=== PATIENT | male | born 1995 ===

== ENCOUNTER 2017-06-20 11:05 | Emergency (ER) | payer OTHER ==
[2017-06-20 11:23] VITALS: TEMP 98.4; O2SAT 99
[2017-06-20 11:25] VITALS: BMI 25.3
[2017-06-20 13:09] LABS: BASO % 0.5 % (0.0-2.0); EOS # 0.1 K/uL (0.0-0.7); EOS % 1.8 % (0.0-4.0); HEMATOCRIT 45.4 % (35.0-51.0); LYMPH # 1.3 K/uL (1.0-4.3); LYMPH % 23.9 % (20.0-40.0); MEAN CELL VOLUME 90.4 fl (80.0-94.0); MEAN CORPUSCULAR HEMOGLOBIN 30.1 pg (27.0-31.0); MEAN CORPUSCULAR HGB CONC 33.3 g/dL (33.0-37.0); MONO # 0.5 K/uL (0.0-0.8); MONO % 10.3 % (0.0-10.0); NEUT # 3.4 K/uL (1.8-7.0); NEUT % 63.5 % (50.0-75.0); NRBC % 0.1 % (0.0-0.0); RED CELL DISTRIBUTION WIDTH 13.5 % (11.5-14.5); WHITE BLOOD COUNT 5.3 K/uL (4.8-10.8)
[2017-06-20 13:11] LABS: URINE BILIRUBIN NEGATIVE (NEGATIVE); URINE BLOOD NEGATIVE (NEGATIVE); URINE COLOR STRAW (YELLOW); URINE GLUCOSE (UA) NEG (Normal); URINE KETONE NEGATIVE (NEGATIVE); URINE LEUKOCYTE ESTERASE NEG Leu/uL (Negative); URINE PROTEIN NEGATIVE (NEGATIVE); URINE UROBILINOGEN 0.2-1.0 mg/dL (0.2-1.0)
[2017-06-20 13:18] LABS: ALB/GLOB RATIO 1.6 (1.0-2.1); ALKALINE PHOSPHATASE 61 U/L (38-126); ALT/SGPT 31 U/L (21-72); AST/SGOT 24 U/L (17-59); BILIRUBIN,TOTAL 0.7 mg/dl (0.2-1.3); BLOOD UREA NITROGEN 15 mg/dl (9-20); CALCIUM 9.8 mg/dL (8.4-10.2); CARBON DIOXIDE 27 mmol/L (22-30); CHLORIDE 103 mmol/L (98-107); GFR AFRICAN-AMERICAN > 60; GLUCOSE,RANDOM 92 mg/dL (75-110); POTASSIUM 4.4 MMOL/L (3.6-5.0); SODIUM 141 mmol/l (132-148); TOTAL PROTEIN 7.8 G/DL (6.3-8.2)
--- NOTE | 2017-06-20 13:22 | RAD ---
HISTORY: cp COMPARISON: No prior study available for comparison TECHNIQUE: Chest PA and lateral FINDINGS: LUNGS: No active pulmonary disease. PLEURA: No significant pleural effusion identified. No pneumothorax apparent. CARDIOVASCULAR: Normal. OSSEOUS STRUCTURES: No significant abnormalities. VISUALIZED UPPER ABDOMEN: Normal. OTHER FINDINGS: None. IMPRESSION: No active disease.
--- NOTE | 2017-06-20 13:37 | ED PDOC ---
HPI: Chest Pain Time Seen by Provider: 06/20/17 12:16 Chief Complaint (Nursing): Chest Pain Chief Complaint (Provider): chest pain History Per: Patient History/Exam Limitations: no limitations Associated Symptoms: denies: Nausea, Dyspnea, Diaphoresis, Syncope Additional Complaint(s): 22yo M in ED for eval of Chest pain to the left mid clavicular area reproducible pain with touch started at 1030AM unrelieved with rest or tea, continuous without associated fever, cough, shortness of breath, abd pain, radiation of chest pain nausea vomiting. Pt admits to similar episode once before and states when he feels this way he drink tea and it improves. denies foreign travel or sick contacts. pt admits to hx of occasional cocaine use last use was 6days ago. - Risk Factors PE Risk Factors: Neg: Extremity Immobilization/Fx, Decreased Mobilty /Activity, Recent Major Surgery, Recent Hospitalization, Active Cancer, Previous DVT, Previous PE, CHF, Venous Stasis, Estrogen Usage, , Post-, Recent Major Trauma TAD Risk Factors: Neg: Hypertension, Connective Tissue Disease, Marfan's Syndrome, [place]- Danlos Syndrome, Aortic Valve Disease, Active , Tumer's Syndrome, First Degree Relative With TAD, Sudden Onset Of Pain, Migration Of Pain, New Neurologic Symptoms Past Medical History Reviewed: Historical Data, Nursing Documentation, Vital Signs Vital Signs: Last Vital Signs Temp 98.4 F 06/20/17 11:23 Pulse 61 06/20/17 11:23 Resp 20 06/20/17 11:23 BP 119/64 06/20/17 11:23 Pulse Ox 99 06/20/17 11:23 - Medical History PMH: Back Problems (disc inflammation) - Family History Family History: States: No Known Family Hx - Allergies Allergies/Adverse Reactions: Allergies Allergy/AdvReac Type Severity Reaction Status Date / Time No Known Allergies Allergy Verified 06/20/17 11:49 VERONA Risk Score for UA/NSTEMI - VERONA Risk Score Age > 64: NO 3 or more CAD Risk Factors: NO Known CAD (Stenosis greater than 50%): NO Aspirin use in past 7 days: NO Severe Angina: NO EKG ST changes greater than 0.5mm: NO Positive Cardiac Marker: NO VERONA Score: 0 Risk %: 5% Curb-65 Severity Score - CURB-65 Severity Score Confusion: No Bun >19mg/dl (>7mmol/L): No Respiratory Rate greater than/equal to 30: No Systolic BP <90 or Diastolic BP less than/equal 60mmHg: No Age >64: No Curb-65 Score: 0 Percentage 30-day mortality: 0.6% Wells Criteria for PE - Wells Criteria for Pulmonary Embolism Clinical Signs and Symptoms of DVT: No P.E is #1 Diagnosis, or Equally Likely: No Heart Rate >100: No Immobilization at least 3 days;Surgery previous 4 weeks: No Previous, objectively diagnosed PE or DVT: No Hemoptysis: No Malignancy w/treatment within 6 months, or palliative: No Total Score: 0 Review of Systems ROS Statement: Except As Marked, All Systems Reviewed And Found Negative Constitutional: Negative for: Fever, Chills, Sweats Eyes: Negative for: Vision Change Cardiovascular: Positive for: Chest Pain. Negative for: Palpitations, Orthopnea , Paroxysmal Noc. Dyspnea, Edema, Light Headedness Respiratory: Negative for: Cough, Shortness of Breath Gastrointestinal: Negative for: Nausea, Vomiting, Diarrhea Physical Exam - Reviewed Nursing Documentation Reviewed: Yes Vital Signs Reviewed: Yes - Physical Exam Appears: Positive for: Non-toxic, No Acute Distress. Negative for: Well (pt seems anxious in ER) Skin: Positive for: Normal Color, Warm, DRY Eye Exam: Positive for: EOMI, Normal appearance, PERRL ENT: Positive for: Normal ENT Inspection Neck: Positive for: Normal, Painless ROM Cardiovascular/Chest: Positive for: Regular Rate, Rhythm, Chest Non Tender Respiratory: Positive for: CNT, Normal Breath Sounds Gastrointestinal/Abdominal: Positive for: Normal Exam, Bowel Sounds, Soft. Negative for: Tenderness Back: Positive for: Normal Inspection Extremity: Positive for: Normal ROM Neurologic/Psych: Positive for: Alert, Oriented - Laboratory Results Result Diagrams: 06/20/17 12:50 06/20/17 12:50 - ECG ECG Rhythm: Positive for: Normal QRS, Normal ST Segment, Sinus Bradycardia Rate: 59 O2 Sat by Pulse Oximetry: 99 - Radiology X-Ray: Interpreted by Me, Read By Radiologist X-Ray Interpretation: No Acute Disease - Progress ED Course And Treament: pt given motrin and xanax Medical Decision Making Medical Decision Making: pt with unremarkable labs results, normal chest xray and eKG. mot likely pt with angina due to cocaine use vs costochronitis. Pt improved with motrin and xanax. PT strongly advised to have cardiology f.u for holter monitor and echosono. pt understands and agrees with plan. Disposition - Clinical Impression Clinical Impression: Chest wall pain - Patient ED Disposition Is Patient to be Admitted: No Counseled Patient/Family Regarding: Studies Performed, Diagnosis, Need For Followup, Rx Given - Disposition Referrals: [facility] [Outside] [facility] [Outside] Disposition: Routine/Home Disposition Time: 13:41 Condition: STABLE Instructions: Costochondritis (ED), Chest Pain (DC), Angina (ED) Forms: [employer] Connect (Tristanian), [facility] ED School/Work Excuse Print Language: PORTUGUESE
[2017-06-20 13:41] VITALS: PULSE 59
[2017-06-20 14:06] VITALS: BP 110/71; RESP 16
--- NOTE | 2017-06-21 10:52 | CARD ---
APPROVED REPORT EKG Measurement Heart [id number] <Conclusion> Sinus bradycardia Otherwise normal ECG
== END 2017-06-20 14:03 | disposition home or self-care (01) ==
LOC: H.ER 11:05
DX: R07.89 Other chest pain (principal)

== ENCOUNTER 2018-05-06 11:58 | Emergency (ER) | payer OTHER ==
[2018-05-06 11:58] VITALS: BMI 25.3
[2018-05-06 12:39] VITALS: RESP 20
[2018-05-06] MEDS ORDERED: Albuterol-Ipratrop 3 mg / 0.5 (3 ml) UD INH STA (12:47)
[2018-05-06] MEDS ORDERED: Albuterol 0.083% Inhal Sol (2.5 mg/3 mL) UD INH STA (12:47)
[2018-05-06] MEDS ORDERED: guaiFENesin 200 mg/10 ml Syrup UD PO STA (12:49)
--- NOTE | 2018-05-06 12:51 | ED PDOC ---
HPI: CCC, URI, Sore Throat Time Seen by Provider: 05/06/18 12:29 Chief Complaint (Nursing): Cough, Cold, Congestion Chief Complaint (Provider): Congestion x3 months, Cough x1 month History Per: Patient History/Exam Limitations: no limitations Have you had recent travel within the past 21 days to any of the following countries: [place], [place], [place] or [place]?: No Onset/Duration Of Symptoms: Days, Worse Since (x2 weeks ago) Current Symptoms Are (Timing): Still Present Sick Contacts (Context): None Associated Symptoms: Cough. denies: Fever, Chills, Sore Throat Additional Complaint(s): 23 y/o male with no significant PMHx presents to the ED complaining of nasal congestion, onset three months ago. Patient also reports nasal congestion is associated with a wet cough, onset last month that has been worsening for over two weeks. Patient reports of taking [id number] cold medicine with no relief. Patient is unsure the name of medication. Patient reports of seeing PMD last week for the same symptoms but was not given a diagnosis and was sent home with an inhaler. Today, patient reports of developing back pain secondary to cough. Patient is here today seeking a second opinion. Patient denies taking medication prior to arrival for symptom relief. Otherwise: (-) ear pain, (-) throat pain, (-) fever, (-) chills, (-) prolonged immobility, (-) calf pain, (- ) foot swelling, (-) sick contacts, (-) travel, (-) chest pain, (-) abdominal pain, (-) nausea, (-) vomiting. PMD: Dr. Forylan Aleman Past Medical History Reviewed: Historical Data, Nursing Documentation, Vital Signs Vital Signs: Last Vital Signs Temp 98 F 05/06/18 16:02 Pulse 88 05/06/18 16:02 Resp 20 05/06/18 16:02 BP 120/70 05/06/18 16:02 Pulse Ox 98 05/06/18 16:02 - Medical History PMH: No Chronic Diseases - Surgical History Surgical History: No Surg Hx - Family History Family History: States: Unknown Family Hx - Social History Current smoker - smoking cessation education provided: No Alcohol: Social Drugs: Cannabis (1x/week) - Home Medications Home Medications: Ambulatory Orders Medication Instructions Recorded Fluticasone Nasal [Flonase] 1 actuation NS BID #1 unit 05/06/18 Phenylephrine HCl/Prometh HCl 5 ml PO Q6 PRN #150 ml 05/06/18 [Promethazine-Phenylephrine Syr] - Allergies Allergies/Adverse Reactions: Allergies Allergy/AdvReac Type Severity Reaction Status Date / Time No Known Allergies Allergy Verified 06/20/17 11:49 Review of Systems ROS Statement: Except As Marked, All Systems Reviewed And Found Negative Constitutional: Negative for: Fever, Chills ENT: Positive for: Nose Congestion. Negative for: Ear Pain, Throat Pain Cardiovascular: Negative for: Chest Pain Respiratory: Positive for: Cough Gastrointestinal: Negative for: Nausea, Vomiting, Abdominal Pain Musculoskeletal: Negative for: Leg Pain (calf pain), Foot Pain (foot swelling) Physical Exam - Reviewed Nursing Documentation Reviewed: Yes Vital Signs Reviewed: Yes - Physical Exam Comments: GENERAL APPEARANCE: Patient is awake, alert, oriented x 3, in no acute distress. Resting comfortably. SKIN: Warm, dry; (-) cyanosis. EYES: (-) conjunctival pallor. ENMT: Mucous membranes moist. No sinus tenderness. Airway patent: (-) stridor. Bilateral clear rhinorrhea. Pharynx: Clear, (-) swelling, (-) erythema , (-) exudate. TMs: Non-bulging, (-) erythema. NECK: Supple, FROM (-) tenderness, (-) stiffness, (-) lymphadenopathy. CHEST AND RESPIRATORY: Lungs are clear to auscultation. (-) rhonchi, (-) rales , (-) wheezes, (-) pleural rub; breath sounds equal bilaterally. Respirations even and nonlabored, speaking in full sentences. HEART AND CARDIOVASCULAR: (-) irregularity; (-) murmur ABDOMEN AND GI: Soft; (-) tenderness (-) guarding (-) distention. EXTREMITIES: (-) deformity; (-) edema. BACK: (-) midline tenderness (+) bilateral parathoracic tenderness NEURO AND PSYCH: Mental status as above. Cranial nerves grossly intact; strength symmetric. Gait steady (-) facial asymmetry; speech clear. - Laboratory Results Result Diagrams: 05/06/18 13:44 05/06/18 13:44 - ECG ECG Rhythm: Positive for: Sinus Rhythm Interpretation Of ECG: QTc at 420. No ST elevation Rate: 64 O2 Sat by Pulse Oximetry: 99 (RA) Pulse Ox Interpretation: Normal Medical Decision Making Medical Decision Making: Time: 1249 Impression: cough and congestion Plan: -- EKG -- CXR Two Views -- Albuterol 0.083% 2.5 mg INH -- Duoneb 3 mg/0.5 mg (3 ml) UD -- Robitussin 200 mg PO -- Toradol 30 mg IVP -- Facilities Operator -- IV Insertion -- CMP -- CBC with differentials 1540 CXR reviewed, radiology report follows Date of service: 05/06/2018 HISTORY: SOB, cough [id number] COMPARISON: Comparison chest 06/20/2017. TECHNIQUE: Chest PA and lateral FINDINGS: LUNGS: No active pulmonary disease. PLEURA: No significant pleural effusion identified. No pneumothorax apparent. CARDIOVASCULAR: Normal. OSSEOUS STRUCTURES: No significant abnormalities. VISUALIZED UPPER ABDOMEN: Normal. OTHER FINDINGS: None. IMPRESSION: No active disease. Labs reviewed and grossly unremarkable. On re-evaluation, patient reports improvement of symptoms. On exam, patient remains AAOx3, in no acute distress. Lungs clear to auscultation, cardiac RRR, abdomen soft, non-tender, repeat neuro exam shows no focal findings. VSS, stable for discharge. Lab/Diagnostic results d/w the patient in great detail. Diagnosis of cough, congestion d/w the patient. Based on history, exam and diagnostic results, plan will be for outpatient follow up. Patient instructed to follow-up with pmd / referral provided / the clinic in 1- 2 days without fail. Advised to take medication as prescribed. Return to the emergency room at any time for any new or worsening symptoms. Patient states he fully agrees with and understands discharge instructions. States that he agrees with the plan and disposition. Verbalized and repeated discharge instructions and plan. I have given the patient opportunity to ask any additional questions. Scribe Attestation: Documented by Anil Davenport acting as a scribe for Mayte Brito PA-C. Provider Scribe Attestation: All medical record entries made by the Scribe were at my direction and personally dictated by me. I have reviewed the chart and agree that the record accurately reflects my personal performance of the history, physical exam, medical decision making, and the department course for this patient. I have also personally directed, reviewed, and agree with the discharge instructions and disposition. Disposition - Clinical Impression Clinical Impression: Cough, Nasal congestion - Patient ED Disposition Is Patient to be Admitted: No Counseled Patient/Family Regarding: Studies Performed, Diagnosis, Need For Followup, Rx Given - Disposition Referrals: Froylan Aleman MD [Family Provider] - Disposition: Routine/Home Disposition Time: 15:41 Condition: STABLE Additional Instructions: The emergency medical care you received today was directed at your acute symptoms. If you were prescribed any medication, please fill it and take as directed. It may take several days for your symptoms to resolve. Return to the Emergency Department if your symptoms worsen, do not improve, or if you have any other problems. Please contact your doctor in 2 days for re-evaluation and follow up / or call one of the physicians/clinics you have been referred to that are listed on the Patient Visit Information form that is included in your discharge packet. Bring any paperwork you were given at discharge with you along with any medications you are taking to your follow up visit. Our treatment cannot replace ongoing medical care by a primary care provider (PCP) outside of the emergency department. Prescriptions: Fluticasone Nasal [Flonase] 1 actuation NS BID #1 unit Phenylephrine HCl/Prometh HCl [Promethazine-Phenylephrine Syr] 5 ml PO Q6 PRN # 150 ml PRN Reason: Cough Instructions: Cough in Adults, Cough, Runny Nose, and the Common Cold Forms: [employer] (Romanian) Print Language: BARBADIAN - POA Present On Arrival: None Results - Lab Results Lab Results: 05/06/18 05/06/18 13:44 13:44 WBC 10.4 D RBC 4.55 Hgb 14.4 Hct 41.5 MCV 91.3 MCH 31.6 H MCHC 34.7 RDW 13.7 Plt Count 232 MPV 10.6 Neut % (Auto) 75.2 H Lymph % (Auto) 14.1 L Mclennan % (Auto) 7.7 Eos % (Auto) 2.4 Baso % (Auto) 0.6 Neut # (Auto) 7.8 H Lymph # (Auto) 1.5 Mclennan # (Auto) 0.8 Eos # (Auto) 0.2 Baso # (Auto) 0.1 Sodium 140 Potassium 4.1 Chloride 102 Carbon Dioxide 26 Anion Gap 16 BUN 11 Creatinine 0.8 Est GFR ( Amer) > 60 Est GFR (Non-Af Amer) > 60 Random Glucose 91 Calcium 9.7 Total Bilirubin 0.9 AST 58 ALT 59 Alkaline Phosphatase 85 Total Protein 8.4 H Albumin 4.8 Globulin 3.6 Albumin/Globulin Ratio 1.3
[2018-05-06] MEDS ORDERED: Albuterol 0.083% Inhal Sol (2.5 mg/3 mL) UD ONE (13:11)
[2018-05-06] MEDS ORDERED: Albuterol-Ipratrop 3 mg / 0.5 (3 ml) UD ONE (13:12)
[2018-05-06 13:57] LABS: BASO # 0.1 K/uL (0.0-0.2); BASO % 0.6 % (0.0-2.0); EOS # 0.2 K/uL (0.0-0.7); EOS % 2.4 % (0.0-4.0); HEMOGLOBIN 14.4 g/dL (12.0-18.0); LYMPH # 1.5 K/uL (1.0-4.3); LYMPH % 14.1 % (20.0-40.0); MEAN CELL VOLUME 91.3 fl (80.0-94.0); MEAN CORPUSCULAR HEMOGLOBIN 31.6 pg (27.0-31.0); MEAN CORPUSCULAR HGB CONC 34.7 g/dL (33.0-37.0); MEAN PLATELET VOLUME 10.6 fl (7.2-11.7); MONO # 0.8 K/uL (0.0-0.8); MONO % 7.7 % (0.0-10.0); NEUT # 7.8 K/uL (1.8-7.0); NEUT % 75.2 % (50.0-75.0); RBC 4.55 Mil/uL (4.40-5.90); RED CELL DISTRIBUTION WIDTH 13.7 % (11.5-14.5); WHITE BLOOD COUNT 10.4 K/uL (4.8-10.8)
[2018-05-06 14:02] LABS: ALB/GLOB RATIO 1.3 (1.0-2.1); ALBUMIN 4.8 g/dL (3.5-5.0); ALT/SGPT 59 U/L (21-72); AST/SGOT 58 U/L (17-59); BLOOD UREA NITROGEN 11 mg/dl (9-20); CALCIUM 9.7 mg/dL (8.4-10.2); GFR AFRICAN-AMERICAN > 60; GFR NON-AFRICAN AMERICAN > 60
--- NOTE | 2018-05-06 14:57 | RAD ---
Date of service: 05/06/2018 HISTORY: SOB, cough [id number] COMPARISON: Comparison chest 06/20/2017. TECHNIQUE: Chest PA and lateral FINDINGS: LUNGS: No active pulmonary disease. PLEURA: No significant pleural effusion identified. No pneumothorax apparent. CARDIOVASCULAR: Normal. OSSEOUS STRUCTURES: No significant abnormalities. VISUALIZED UPPER ABDOMEN: Normal. OTHER FINDINGS: None. IMPRESSION: No active disease.
[2018-05-06 16:03] VITALS: BP 120/70; TEMP 98
--- NOTE | 2018-05-07 07:42 | CARD ---
APPROVED REPORT Date of service: 05/06/2018 <Conclusion> Normal sinus rhythm with sinus arrhythmia Normal ECG
[2018-05-09 13:00] VITALS: PULSE 64; O2SAT 99
== END 2018-05-06 16:02 | disposition home or self-care (01) ==
LOC: H.ER 11:58
DX: R05 Cough (principal); R09.81 Nasal congestion
CPT/HCPCS: 71046; 80053; 85025; 93005; 96374; 99283; J1885

== ENCOUNTER 2018-10-17 20:31 | Emergency (ER) | payer SELFPAY ==
[2018-10-17 20:31] VITALS: BMI 25.3
--- NOTE | 2018-10-17 20:55 | ED PDOC ---
HPI: Chest Pain Time Seen by Provider: 10/17/18 20:51 Chief Complaint (Nursing): Chest Pain Chief Complaint (Provider): Chest Pain History Per: Patient History/Exam Limitations: no limitations Onset/Duration Of Symptoms: Days, Worse Since (today) Current Symptoms Are (Timing): Still Present Additional Complaint(s): Patient is a 23 y/o male with a PMHx of asthma, back problems, HTN, and bronchitis who presents to the ED for evaluation of frequent, left sided chest pain. Patient reports the pain occasionally radiates to his left arm. Patient was also experiencing shortness of breath today, thus, prompting his ED visit. Patient states he has been taking Aspirin for his high blood pressure and to provide relief. Patient states he last took Aspirin one hour prior to arrival. 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 Patient claims at work he is surrounded by people who smoke. PCP: Dr. Stuart Negrete Past Medical History Reviewed: Historical Data, Nursing Documentation, Vital Signs Vital Signs: Last Vital Signs Temp 98.2 F 10/17/18 20:38 Pulse 75 10/17/18 20:38 Resp 18 10/17/18 20:38 BP 145/75 10/17/18 20:38 Pulse Ox 98 10/17/18 20:38 - Medical History PMH: Asthma, Back Problems (disc inflammation), Bronchitis, HTN Denies: Diabetes - Surgical History Surgical History: No Surg Hx - Family History Family History: States: Unknown Family Hx - Social History Current smoker - smoking cessation education provided: No Alcohol: Social Drugs: Cannabis - Immunization History Hx Tetanus Toxoid Vaccination: No Hx Influenza Vaccination: No Hx Pneumococcal Vaccination: No - Home Medications Home Medications: Ambulatory Orders Medication Instructions Recorded Fluticasone Nasal [Flonase] 1 actuation NS BID #1 unit 05/06/18 Phenylephrine HCl/Prometh HCl 5 ml PO Q6 PRN #150 ml 05/06/18 [Promethazine-Phenylephrine Syr] - Allergies Allergies/Adverse Reactions: Allergies Allergy/AdvReac Type Severity Reaction Status Date / Time No Known Allergies Allergy Verified 06/20/17 11:49 VERONA Risk Score for UA/NSTEMI - VERONA Risk Score Age > 64: NO 3 or more CAD Risk Factors: NO Known CAD (Stenosis greater than 50%): NO Aspirin use in past 7 days: YES Severe Angina: NO EKG ST changes greater than 0.5mm: NO Positive Cardiac Marker: NO VERONA Score: 1 Risk %: 5% Wells Criteria for PE - Wells Criteria for Pulmonary Embolism Clinical Signs and Symptoms of DVT: No P.E is #1 Diagnosis, or Equally Likely: No Heart Rate >100: No Immobilization at least 3 days;Surgery previous 4 weeks: No Previous, objectively diagnosed PE or DVT: No Hemoptysis: No Malignancy w/treatment within 6 months, or palliative: No Total Score: 0 Review of Systems ROS Statement: Except As Marked, All Systems Reviewed And Found Negative Constitutional: Negative for: Fever Cardiovascular: Positive for: Chest Pain (left sided) Respiratory: Positive for: Shortness of Breath Musculoskeletal: Positive for: Arm Pain (left) Physical Exam - Reviewed Nursing Documentation Reviewed: Yes Vital Signs Reviewed: Yes - Physical Exam Appears: Positive for: No Acute Distress Head Exam: Positive for: ATRAUMATIC, NORMAL INSPECTION, NORMOCEPHALIC Skin: Positive for: Normal Color, Warm, DRY Eye Exam: Positive for: EOMI, Normal appearance, PERRL Neck: Positive for: Normal, Painless ROM, Supple Cardiovascular/Chest: Positive for: Regular Rate, Rhythm. Negative for: Chest Non Tender, Murmur Respiratory: Positive for: Normal Breath Sounds (clear auscultation bilaterally). Negative for: Respiratory Distress Extremity: Positive for: Normal ROM (Upper/Lower). Negative for: Pedal Edema, Deformity Neurologic/Psych: Positive for: Alert, Oriented. Negative for: Motor/Sensory Deficits - Laboratory Results Result Diagrams: 10/17/18 20:55 10/17/18 20:55 - ECG ECG: Positive for: Interpreted By Me, Viewed By Ct ECG Rhythm: Positive for: Right Bundle Branch Block Rate: 79 O2 Sat by Pulse Oximetry: 98 (RA) Pulse Ox Interpretation: Normal - Radiology X-Ray: Interpreted by Me X-Ray Interpretation: No Acute Disease - Progress Condition: Re-examined, Improved Medical Decision Making Medical Decision Making: Time: 2040 Impression: Chest Pain Plan: EKG: partial RBB, see details in Treatment section Aspirin Chewable 81 mg PO BNP: no clinically significant value CMP: glucose at 71; tx in ED with juice and retested with POC Troponin I: not clinically signifivant CBC: no clinically significant values PTT: no clinically significant values PT/INR: : no clinically significant values Chest Two Views (PA/Lat) [Rad] Influenza A B - negative UA: no clinically significant values D-dimer: Pt has a stress test ordered through the [facility] FP clinic on Friday for symptoms of CP on exertion; FP clinic contacted via Dr Hairston and informed of patient's status in the ED; R/O ACS- VERONA Score: 1; chest pain does not appear to be cardiac related as reflected in clinical values and labs R/O PE- Wells Criteria 0; D-Dimer: Pt is stable for discharge. Follow up with Clinic as scheduled on Friday for St ress Test. Scribe Attestation: Documented by Danny Acevedo, acting as a scribe for JUDY Malik. Provider Scribe Attestation: All medical record entries made by the Scribe were at my direction and per sonally dictated by me. I have reviewed the chart and agree that the record accurately reflects my personal performance of the history, physical exam, medical decision making, and the department course for this patient. I have also personally directed, reviewed, and agree with the discharge instructions and disposition. Disposition - Clinical Impression Clinical Impression: Chest pain not due to acute coronary syndrome, Chest pain, exertional - Patient ED Disposition Is Patient to be Admitted: Transfer of Care Discussed With : Demetrius Hairston Comment: Dr Briana Terry is treating physician at [facility] FP clinic Doctor Will See Patient In The: Office Counseled Patient/Family Regarding: Studies Performed, Diagnosis, Need For Followup - Disposition Disposition: Routine/Home Disposition Time: 00:30 Condition: STABLE Forms: [employer] (Guinean)
[2018-10-17 22:01] LABS: BASO % 0.5 % (0.0-2.0); EOS # 0.1 K/uL (0.0-0.7); EOS % 2.1 % (0.0-4.0); HEMOGLOBIN 15.4 g/dL (12.0-18.0); MEAN CORPUSCULAR HEMOGLOBIN 30.8 pg (27.0-31.0); MEAN CORPUSCULAR HGB CONC 33.8 g/dL (33.0-37.0); MONO # 0.6 K/uL (0.0-0.8); MONO % 9.6 % (0.0-10.0); NEUT # 3.6 K/uL (1.8-7.0); NEUT % 56.8 % (50.0-75.0); NRBC % 0.1 % (0.0-0.0); RED CELL DISTRIBUTION WIDTH 13.6 % (11.5-14.5); WHITE BLOOD COUNT 6.3 K/uL (4.8-10.8)
[2018-10-17 22:04] LABS: URINE BILIRUBIN NEGATIVE (NEGATIVE); URINE BLOOD NEGATIVE (NEGATIVE); URINE CLARITY CLEAR (Clear); URINE COLOR STRAW (YELLOW); URINE GLUCOSE (UA) NEG (NEGATIVE); URINE LEUKOCYTE ESTERASE NEG Leu/uL (Negative); URINE PROTEIN NEGATIVE (NEGATIVE); URINE UROBILINOGEN 0.2-1.0 mg/dL (0.2-1.0)
[2018-10-17 22:06] LABS: INR 0.9; PROTHROMBIN TIME 10.4 Seconds (9.8-13.1)
[2018-10-17 22:08] LABS: PARTIAL THROMBOPLASTIN TIME 32.7 Seconds (25.6-37.1)
[2018-10-17 22:12] LABS: ALB/GLOB RATIO 1.4 (1.0-2.1); ALBUMIN 4.6 g/dL (3.5-5.0); ALT/SGPT 28 U/L (21-72); AST/SGOT 31 U/L (17-59); BLOOD UREA NITROGEN 19 mg/dl (9-20); CALCIUM 9.6 mg/dL (8.4-10.2); GFR NON-AFRICAN AMERICAN > 60
[2018-10-17 22:23] LABS: B-TYPE NATRIURETIC PEPTIDE 22.8 pg/ml (0-450)
--- NOTE | 2018-10-18 01:33 | ED PDOC ---
- Laboratory Results Result Diagrams: 10/17/18 20:55 10/17/18 20:55 Lab Results: PT 10.4 Seconds (9.8-13.1) 10/17/18 20:55 INR 0.9 10/17/18 20:55 APTT 32.7 Seconds (25.6-37.1) 10/17/18 20:55 D-Dimer, Quantitative < 200 ng/mlDDU (0-230) 10/17/18 22:55 Troponin I < 0.0120 ng/mL (0.00-0.120) 10/17/18 20:55 NT-Pro-B Natriuret Pep 22.8 pg/ml (0-450) 10/17/18 20:55 Total Bilirubin 0.3 mg/dl (0.2-1.3) 10/17/18 20:55 AST 31 U/L (17-59) 10/17/18 20:55 ALT 28 U/L (21-72) 10/17/18 20:55 Alkaline Phosphatase 87 U/L (38-126) 10/17/18 20:55 Total Protein 7.9 G/DL (6.3-8.2) 10/17/18 20:55 Albumin 4.6 g/dL (3.5-5.0) 10/17/18 20:55 Globulin 3.3 gm/dL (2.2-3.9) 10/17/18 20:55 Albumin/Globulin Ratio 1.4 (1.0-2.1) 10/17/18 20:55 Urine Color Straw (YELLOW) 10/17/18 20:55 Urine Clarity Clear (Clear) 10/17/18 20:55 Urine pH 7.0 (5.0-8.0) 10/17/18 20:55 Ur Specific [place] 1.012 (1.003-1.030) 10/17/18 20:55 Urine Protein Negative mg/dL (NEGATIVE) 10/17/18 20:55 Urine Glucose (UA) Neg mg/dL (NEGATIVE) 10/17/18 20:55 Urine Ketones Negative mg/dL (NEGATIVE) 10/17/18 20:55 Urine Blood Negative (NEGATIVE) 10/17/18 20:55 Urine Nitrate Negative (NEGATIVE) 10/17/18 20:55 Urine Bilirubin Negative (NEGATIVE) 10/17/18 20:55 Urine Urobilinogen 0.2-1.0 mg/dL (0.2-1.0) 10/17/18 20:55 Ur Leukocyte Esterase Neg Sharri/uL (Negative) 10/17/18 20:55 Urine RBC (Auto) < 1 /hpf (0-3) 10/17/18 20:55 Urine Microscopic WBC < 1 /hpf (0-5) 10/17/18 20:55 - ECG O2 Sat by Pulse Oximetry: 98 (RA) - Progress ED Course And Treament: Case endorsed to senior grant writer from Vicki ROJAS pending labs Patient educated on findings, discharged with instructions to follow up at scheduled appointment next week Return precautions given Disposition - Clinical Impression Clinical Impression: Chest pain not due to acute coronary syndrome, Chest pain, exertional - POA Present On Arrival: None - Disposition Disposition: Routine/Home Disposition Time: 01:32 Condition: STABLE Instructions: Chest Pain Forms: [employer] (Croatian) Print Language: GREENLANDIC
[2018-10-18 01:55] VITALS: BP 130/70; PULSE 81; RESP 18; TEMP 98; O2SAT 99
--- NOTE | 2018-10-18 10:10 | RAD ---
Date of service: 10/17/2018 HISTORY: cp COMPARISON: Chest radiograph dated 05/06/2018 TECHNIQUE: Chest PA and lateral FINDINGS: LUNGS: No active pulmonary disease. PLEURA: No significant pleural effusion identified. No pneumothorax apparent. CARDIOVASCULAR: No aortic atherosclerotic calcification present. Normal cardiac size. No pulmonary vascular congestion. OSSEOUS STRUCTURES: No significant abnormalities. VISUALIZED UPPER ABDOMEN: Normal. OTHER FINDINGS: None. IMPRESSION: No active disease.
--- NOTE | 2018-10-18 16:44 | CARD ---
APPROVED REPORT Date of service: 10/17/2018 EKG Measurement Heart [id number] <Conclusion> Normal sinus rhythm with sinus arrhythmia Incomplete right bundle branch block Borderline ECG
== END 2018-10-18 01:54 | disposition home or self-care (01) ==
LOC: H.ER 20:31
DX: R07.89 Other chest pain (principal)